=== PATIENT | male | born 1975 | race African-American/Black ===

== ENCOUNTER → 2021-03-23 04:40 | Outpatient (CLI) | payer OTHER, SELFPAY ==
[2021-03-24 01:26] LABS: SARS-CoV-2 RNA PCR Negative
== END ==
PROVIDERS: PCP Family Medicine; Visit Provider Internal Medicine Critical Care Medicine
DX: R68.89 Other general symptoms and signs (principal); Z20.822 Contact with and (suspected) exposure to COVID-19
CPT/HCPCS: C9803; U0003; U0005

== ENCOUNTER 2021-03-25 07:46 | Outpatient (CLI) | payer OTHER, SELFPAY ==
--- NOTE | 2021-04-07 14:45 | WPDSLEEPSTUD ---
Sleep Study Date of Study: 03/25/21 <Naina Quiles DO - Last Filed: 04/07/21 15:10> Ordering Provider: Marianna Cornell MD <Naina Quiles DO - Last Filed: 04/07/21 15:10> Interpreting Physician: Naina Quiles DO <Naina Quiles DO - Last Filed: 04/07/21 15:10> Sleep Study Type: Polysomnogram <Naina Quiles DO - Last Filed: 04/07/21 15:10> Height: 1.6 m <Naina Quiles DO - Last Filed: 04/07/21 15:10> Weight: 97.522 kg <Naina Quiles DO - Last Filed: 04/07/21 15:10> Body Mass Index: 38.0 <Naina Quiles DO - Last Filed: 04/07/21 15:10> Neck Circumference (inches): 14.5 <Naina Quiles DO - Last Filed: 04/07/21 15:10> [place]: 11 <Naina Quiles DO - Last Filed: 04/07/21 15:10> Reason for Sleep Study Daytime somnolence, unrefreshing sleep, loud snoring, waking up gasping for air throughout the night. <Naina Quiles DO - Last Filed: 04/07/21 15:10> Sleep History The patient is a 46-year-old female with history of Chiari 1 malformation, Hypertension, depression, GERD and migraine that had a sleep study ordered by her primary care doctor for evaluation her sleep disturbances. The patient states that she often awakens from sleep short of breath. She frequently awakens at night with heartburn, belching or cough. She constantly snores loudly enough that others complain. She has difficulty sleeping when she has a cold. She often suddenly wakes up gasping for air throughout the night. She often has breathing problems at night noticed by others. She constantly sweats excessively at night. She frequently notices heart palpitations throughout the night. She constantly falls asleep during the day, But never while driving. She constantly experiences loss of muscle tone when extremely emotional. She often has trouble at school or worse due to sleepiness. She frequently feels unable to move when waking or falling asleep. She frequently has years. She is often sad depressed and anxious. She rarely notices parts of her body jerk. She frequently kicks throughout the night and experiences crawling and aching feelings in her legs. She constantly has leg pain throughout the night. She states she does not grind her teeth during sleep but constantly has morning jaw pain. She is constantly bothered by pain throughout the day it is a weekend by pain throughout the night. She constantly wakes up feeling stiff in the morning with sore and achy muscles. The patient goes to bed around midnight to 1:00 a.m. on the weekdays and 1:00 a.m. to 2:00 a.m. on the weekends. It takes her 1-2 hours to fall asleep. She wakes up 4-5 times throughout the night for unknown reasons. It takes her about an hour or longer to fall asleep. when she can not fall sleep, she watches television.He she wakes around 4:25 a.m. on weekdays and weekends. she denies tobacco, alcohol and caffeine use. She occasionally uses marijuana. <Naina Quiles DO - Last Filed: 04/07/21 15:10> [facility] Past Medical History Medical History: Medical History Chiari I malformation Chronic rhinitis Current episode of major depressive disorder without prior episode GERD (gastroesophageal reflux disease) Migraine without aura and without status migrainosus, not intractable <Naina Quiles DO - Last Filed: 04/07/21 15:10> Surgical History Surgical History: Surgical History Status post craniotomy Chiari malformation <Naina Quiles DO - Last Filed: 04/07/21 15:10> Medications Home Medications: Home Medications Medication Instructions Recorded Confirmed Type acetaminophen 325 mg capsule 325 mg PO Q6H PRN 11/18/20 11/20/20 History amlodipine 5 mg tablet 5 mg PO DAILY 11/18/20 11/20/20 History anastasia
[2021-04-07 15:09] VITALS: BMI 38.0
== END 2021-03-26 06:06 | disposition home or self-care (01) ==
LOC: ANHCSM 07:48
PROVIDERS: PCP Family Medicine; Visit Provider Internal Medicine Critical Care Medicine
DX: G47.10 Hypersomnia, unspecified (principal); G47.33 Obstructive sleep apnea (adult) (pediatric)
CPT/HCPCS: 95810

== ENCOUNTER → 2021-08-04 02:18 | Outpatient (CLI) | payer OTHER, SELFPAY ==
[2021-08-04 16:42] LABS: SARS-CoV-2 RNA PCR Negative
== END ==
PROVIDERS: PCP Family Medicine; Visit Provider Internal Medicine Critical Care Medicine
DX: R68.89 Other general symptoms and signs (principal); Z20.822 Contact with and (suspected) exposure to COVID-19
CPT/HCPCS: C9803; U0003; U0005

== ENCOUNTER 2021-08-06 07:42 | Outpatient (CLI) | payer OTHER, SELFPAY ==
--- NOTE | 2021-08-10 13:57 | WPDSLEEPSTUD ---
Sleep Study Date of Study: 08/06/21 <Naina Quiles DO - Last Filed: 08/10/21 14:15> Ordering Provider: Marianna Cornell MD <Naina Quiles DO - Last Filed: 08/10/21 14:15> Interpreting Physician: Naina Quiles DO <Naina Quiles DO - Last Filed: 08/10/21 14:15> Sleep Study Type: CPAP Titration <Naina Quiles DO - Last Filed: 08/10/21 14:15> Height: 1.6 m <Naina Quiles DO - Last Filed: 08/10/21 14:15> Weight: 95.708 kg <Naina Quiles DO - Last Filed: 08/10/21 14:15> Body Mass Index: 37.3 <Naina Quiles DO - Last Filed: 08/10/21 14:15> Neck Circumference (inches): 15 <Naina Quiles DO - Last Filed: 08/10/21 14:15> [place]: 4 <Naina Quiles DO - Last Filed: 08/10/21 14:15> Reason for Sleep Study The patient had a PSG on 03/25/2021 that showed an AHI of 5.6 which is consistent with mild sleep apnea. It was recommended that she have an in-lab PAP Titration due to her Chiari malformation. <Naina Quiles DO - Last Filed: 08/10/21 14:15> Sleep History The patient is a 46-year-old female with history of Chiari 1 malformation, Hypertension, depression, GERD and migraine that had a sleep study ordered by her primary care doctor for evaluation her sleep disturbances. The patient states that she often awakens from sleep short of breath. She frequently awakens at night with heartburn, belching or cough. She constantly snores loudly enough that others complain. She has difficulty sleeping when she has a cold. She often suddenly wakes up gasping for air throughout the night. She often has breathing problems at night noticed by others. She constantly sweats excessively at night. She frequently notices heart palpitations throughout the night. She constantly falls asleep during the day, But never while driving. She constantly experiences loss of muscle tone when extremely emotional. She often has trouble at school or worse due to sleepiness. She frequently feels unable to move when waking or falling asleep. She frequently has years. She is often sad depressed and anxious. She rarely notices parts of her body jerk. She frequently kicks throughout the night and experiences crawling and aching feelings in her legs. She constantly has leg pain throughout the night. She states she does not grind her teeth during sleep but constantly has morning jaw pain. She is constantly bothered by pain throughout the day it is a weekend by pain throughout the night. She constantly wakes up feeling stiff in the morning with sore and achy muscles. The patient goes to bed around midnight to 1:00 a.m. on the weekdays and 1:00 a.m. to 2:00 a.m. on the weekends. It takes her 1-2 hours to fall asleep. She wakes up 4-5 times throughout the night for unknown reasons. It takes her about an hour or longer to fall asleep. When she can not fall sleep, she watches television. She wakes up around 4-5 a.m. on weekdays and weekends. She denies tobacco, alcohol and caffeine use. She occasionally uses marijuana. <Naina Quiles DO - Last Filed: 08/10/21 14:15> [facility] Past Medical History Medical History: Medical History Chiari I malformation Chronic rhinitis Current episode of major depressive disorder without prior episode GERD (gastroesophageal reflux disease) Migraine without aura and without status migrainosus, not intractable <Naina Quiles DO - Last Filed: 08/10/21 14:15> Surgical History Surgical History: Surgical History Status post craniotomy Chiari malformation <Naina Quiles DO - Last Filed: 08/10/21 14:15> Medications Home Medications: Home Medications Medication Instructions Recorded Confirmed Type acetaminophen 325 mg capsule 325 mg PO Q6H PRN
[2021-08-10 13:59] VITALS: BMI 37.3
--- NOTE | 2022-04-14 10:51 | SLEEP ---
pt is still not using device she has an upcoming surgery she states she will be taking the machine to the hospital for use
--- NOTE | 2022-09-27 09:15 | SLEEP ---
pt not using pap
== END 2021-08-07 07:53 | disposition home or self-care (01) ==
LOC: ANHCSM 07:55
PROVIDERS: PCP Family Medicine; Visit Provider Internal Medicine Critical Care Medicine
DX: G47.33 Obstructive sleep apnea (adult) (pediatric) (principal)
CPT/HCPCS: 95811